=== PATIENT | female | born 1965 | race Caucasian/White ===

== ENCOUNTER 2020-03-12 13:25 | Emergency (ER) | payer BC ==
[~2020-03-12] VITALS: Ht 152.4 cm; Wt 60.0 kg
--- NOTE | 2020-03-12 13:42 | NUR ---
PT BIBA WITH C/O HEADACHE, DIZZINESS, N/V/D, GENERALIZED ABD PAIN, COUGH X 4 DAYS. DENIES RECENT HEAD INJURY. ADMITS TO TAKING METH SEVERAL DAYS AGO "TO FEEL BETTER" PT TAKES LISINOPRIL AND HCTZ FOR HTN, TOOK LISINOPRIL THIS AM. 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 PT IS A&OX4, NO DRIFT, BILATERAL GRASP EQUAL, PUPILS EQUAL ROUND AND REACTIVE. NO NEURO DEFICITS. SPEECH CLEAR. EKG TAKEN ON ARRIVAL. ALL MONITORS IN PLACE. CALL LIGHT IN REACH. AWAITING MD AND ORDERS.
--- NOTE | 2020-03-12 13:48 | NUR ---
report given to RNs Sharda and Tiffanie who are assuming care. ERP Dariela notified of pt bp 227/139 with pt c/o headache and dizziness. ERP to see pt shortly.
[2020-03-12] MEDS ORDERED: ENALAPRILAT 1.25 MG/ML, 2ML IV ONE (14:00)
[2020-03-12] MEDS ORDERED: ASPIRIN 81 MG TABLET CHEW PO ONE (14:00)
[2020-03-12] MEDS ORDERED: SODIUM CHLORIDE FLUSH 10ML SYR IVF ONE (14:00)
[2020-03-12] MEDS ORDERED: ASPIRIN 81 MG TABLET CHEW ONE (14:14)
--- NOTE | 2020-03-12 14:18 | NUR ---
ED OUT OF VASOTEC. PHARMACY CALLED ABOUT SENDING MEDICATION.
[2020-03-12 14:24] LABS: BASOPHILS % (AUTO) 0 % (0-1); EOSINOPHILS % (AUTO) 0 % (1-7); LYMPHOCYTES % (AUTO) 12 % (22-44); MEAN CORPUSCULAR HEMOGLOBIN 30.1 pg (27.0-34.8); MEAN CORPUSCULAR HGB CONC 34.3 g/dL (32.4-35.8); MEAN PLATELET VOLUME 8.4 fL (7.4-10.4); MONOCYTES % (AUTO) 5 % (2-9); NEUTROPHILS % (AUTO) 83 % (42-75); PLATELET COUNT 356 x10^3/uL (130-400); RED BLOOD COUNT 5.18 x10^6/uL (3.82-5.3); RED CELL DISTRIBUTION WIDTH 13.2 % (9.6-15.2)
[2020-03-12 14:33] LABS: ALANINE AMINOTRANSFERASE 19 U/L (12-78); ALBUMIN 4.1 g/dL (3.4-5.0); ANION GAP 5 mmol/L (5-15); CALCIUM 9.4 mg/dL (8.5-10.1); CHLORIDE 96 mmol/L (98-107); CREATININE 1.23 mg/dL (0.55-1.02)
[2020-03-12 14:38] LABS: ALKALINE PHOSPHATASE 127 U/L (45-117); BILIRUBIN,TOTAL 0.5 mg/dL (0.2-1.0); TOTAL PROTEIN 7.5 g/dL (6.4-8.2); TROPONIN I < 0.015 ng/mL (0.000-0.045)
[2020-03-12] MEDS ORDERED: ENALAPRILAT 1.25 MG/ML, 2ML ONE (14:50)
[2020-03-12 14:56] LABS: MD SCAN
[2020-03-12] MEDS ORDERED: LISI2.5T PO (14:57)
[2020-03-12] MEDS ORDERED: HYDR12.517 PO (14:57)
--- NOTE | 2020-03-12 14:58 | NUR ---
VASOTEC GIVEN. PT CONTINUES C/O RELENTLESS MCMILLAN. WILL CONTINUE TO MONITOR. FLUID BOLUS INFUSING NOTED ON JUN.
[2020-03-12] MEDS ORDERED: SODIUM CHLORIDE 0.9% 1,000ML IVBOLUS ONE (15:00)
[2020-03-12] MEDS ORDERED: LABETALOL 5MG/ML, 20ML ONE (15:22)
[2020-03-12] MEDS ORDERED: LABETALOL 5MG/ML, 20ML IVPush ONE (15:30)
--- NOTE | 2020-03-12 16:11 | NUR ---
ADDITIONALLY MEDICATED FOR HIGH BLOOD PRESSURE AND UPDATED VS OBTAINED. REMAINS HYPERTENSIVE. WILL CONTINUE TO MONTIOR
--- NOTE | 2020-03-12 16:42 | NUR ---
AFTER RE-BREANA PT CALLED PHARMACIST TO FIND OUT DOSES OF MEDS AT MD REQUEST
[2020-03-12] MEDS ORDERED: HYDR-3342 PO (16:48)
[2020-03-12] MEDS ORDERED: METO200T47 PO (16:48)
[2020-03-12] MEDS ORDERED: HYDR50TA3 PO (16:48)
[2020-03-12] MEDS ORDERED: ATEN25TA PO (16:48)
[2020-03-12 17:51] VITALS: BP 158/96
--- NOTE | 2020-03-12 18:08 | NUR ---
PT REC'VD DISCHARGE INSTRUCTIONS AND EDUCATION. PT HAD NO QUESTIONS. PT AMBULATED TO DISCHARGE AREA, STEADY GAIT.
== END 2020-03-12 18:10 | disposition home or self-care (01) ==
LOC: ED 14:24
DX: I10 Essential (primary) hypertension (principal); R51.9 Headache, unspecified; R07.9 Chest pain, unspecified; R94.31 Abnormal electrocardiogram [ECG] [EKG]
CPT/HCPCS: 36415; 71045; 80053; 84484; 85025; 93005; 96361; 96374; 96375; 99285; J7030